=== PATIENT | female | born 2000 | race Caucasian/White ===

== ENCOUNTER 2020-10-14 16:36 | Emergency (ER) | payer OTHER ==
[2020-10-14 17:43] LABS: BASOPHIL 0.7 % (0-2); EOSINOPHIL 0.7 % (0-5); HCT 41.8 % (37.0-47.0); HGB 14.3 g/dl (12.5-16.0); LYMPHOCYTE 38.3 % (15-48); MCH 30.1 pg (25.0-31.0); MCHC 34.2 g/dL (32.0-36.0); MONOCYTE 5.4 % (0-12); MPV 9.5 fL (6.0-9.5); NEUTROPHIL 54.4 % (41-80); NRBC 0; PLT 241 K/uL (150-400); RBC 4.75 M/uL (4.20-5.40); RDW 12.7 % (11.5-14.0); WBC 5.7 K/uL (4.0-10.5)
[2020-10-14 17:50] LABS: BILIRUBIN NEGATIVE (NEGATIVE); CLARITY CLEAR (CLEAR); COLOR YELLOW (YELLOW); GLUCOSE (U) NORMAL (NORMAL); PROTEIN NEGATIVE (NEGATIVE); SPECIFIC GRAVITY 1.025 (1.001-1.030); pH 5.5 (5.0-9.0)
[2020-10-14 17:51] LABS: BLOOD 2+ Ery/uL (NEGATIVE); LEUKOCYTES NEGATIVE Leu/uL (NEGATIVE); NITRITE NEGATIVE (NEGATIVE); UROBILINOGEN 0.2 mg/dL (0.2-1.0)
[2020-10-14 17:53] LABS: SQUAMOUS EPITHELIAL CELLS RARE
[2020-10-14 18:00] LABS: ALBUMIN 3.3 g/dL (3.4-5.0); BILIRUBIN - TOTAL 0.4 mg/dL (0.2-1.0); BUN/CREAT RATIO (CALC) 9.9 RATIO; CREATININE 0.81 mg/dL (0.51-0.95); GLOBULIN (CALCULATION) 3.4 g/dL; POTASSIUM 4.3 mmol/L (3.5-5.1); TOTAL PROTEIN 6.7 g/dL (6.4-8.2)
== END 2020-10-14 20:15 | disposition home or self-care (01) ==
LOC: FER 16:36
PROVIDERS: Nurse Practitioner Family
DX: B34.9 Viral infection, unspecified (principal); R55 Syncope and collapse; Z88.0 Allergy status to penicillin; Z20.822 Contact with and (suspected) exposure to COVID-19
CPT/HCPCS: 36415; 71045; 80053; 81001; 85025; J7030; U0002

== ENCOUNTER 2020-10-16 17:47 | Emergency (ER) | payer OTHER ==
[2020-10-16 19:41] LABS: BILIRUBIN NEGATIVE (NEGATIVE); BLOOD 2+ Ery/uL (NEGATIVE); CLARITY CLEAR (CLEAR); COLOR YELLOW (YELLOW); GLUCOSE (U) NORMAL (NORMAL); LEUKOCYTES NEGATIVE Leu/uL (NEGATIVE); NITRITE NEGATIVE (NEGATIVE); PROTEIN NEGATIVE (NEGATIVE); UROBILINOGEN 0.2 mg/dL (0.2-1.0); pH 5.5 (5.0-9.0)
[2020-10-16 19:42] LABS: BASOPHIL 0.3 % (0-2); HCT 40.8 % (37.0-47.0); HGB 13.9 g/dl (12.5-16.0); LYMPHOCYTE 34.2 % (15-48); MCH 29.8 pg (25.0-31.0); MCHC 34.1 g/dL (32.0-36.0); MCV 87.4 fL (78.0-100.0); MONOCYTE 4.6 % (0-12); MPV 9.5 fL (6.0-9.5); NEUTROPHIL 59.6 % (41-80); NRBC 0; PLT 221 K/uL (150-400); RBC 4.67 M/uL (4.20-5.40); RDW 12.7 % (11.5-14.0); WBC 5.9 K/uL (4.0-10.5)
[2020-10-16 19:49] LABS: BACTERIA TRACE
[2020-10-16 20:14] LABS: ALBUMIN 2.8 g/dL (3.4-5.0); BILIRUBIN - TOTAL 0.2 mg/dL (0.2-1.0); BUN/CREAT RATIO (CALC) 5.1 RATIO; CREATININE 0.79 mg/dL (0.51-0.95); GLOBULIN (CALCULATION) 3.2 g/dL
== END 2020-10-16 21:17 | disposition home or self-care (01) ==
LOC: FER 17:47
PROVIDERS: Emergency Medicine
DX: R42 Dizziness and giddiness (principal); R63.4 Abnormal weight loss; J45.909 Unspecified asthma, uncomplicated; F17.290 Nicotine dependence, other tobacco product, uncomplicated; Z88.0 Allergy status to penicillin
CPT/HCPCS: 36415; 80053; 81001; 84443; 85025; 93005; J7030

== ENCOUNTER 2021-02-26 20:56 | Emergency (ER) | payer OTHER | END 2021-02-26 23:15 | disposition left against medical advice (07) | LOC: FER 20:56 | DX: R42 Dizziness and giddiness (principal); Z88.0 Allergy status to penicillin; Z87.891 Personal history of nicotine dependence; Z53.8 Procedure and treatment not carried out for other reasons | CPT/HCPCS: 93005 ==

== ENCOUNTER 2021-07-20 10:44 | Emergency (ER) | payer OTHER ==
[2021-07-20 12:44] LABS: BASOPHIL 0.6 % (0-2); HCT 44.2 % (37.0-47.0); LYMPHOCYTE 36.5 % (15-48); MCH 30.1 pg (25.0-31.0); MCHC 33.9 g/dL (32.0-36.0); MCV 88.6 fL (78.0-100.0); MONOCYTE 6.3 % (0-12); MPV 9.3 fL (6.0-9.5); NRBC 0; PLT 229 K/uL (150-400); RBC 4.99 M/uL (4.20-5.40); RDW 12.6 % (11.5-14.0); WBC 6.7 K/uL (4.0-10.5)
[2021-07-20 12:48] LABS: BILIRUBIN NEGATIVE (NEGATIVE); BLOOD NEGATIVE Ery/uL (NEGATIVE); CLARITY CLEAR (CLEAR); COLOR YELLOW (YELLOW); GLUCOSE (U) NORMAL (NORMAL); LEUKOCYTES NEGATIVE Leu/uL (NEGATIVE); NITRITE NEGATIVE (NEGATIVE); PROTEIN NEGATIVE (NEGATIVE); UROBILINOGEN 0.2 mg/dL (0.2-1.0); pH 5.5 (5.0-9.0)
[2021-07-20 13:14] LABS: ALBUMIN 2.9 g/dL (3.4-5.0); BILIRUBIN - TOTAL 0.3 mg/dL (0.2-1.0); BUN/CREAT RATIO (CALC) 8.5 RATIO; CREATININE 0.71 mg/dL (0.51-0.95); GLOBULIN (CALCULATION) 3.3 g/dL; POTASSIUM 3.8 mmol/L (3.5-5.1); TOTAL PROTEIN 6.2 g/dL (6.4-8.2)
== END 2021-07-20 15:42 | disposition home or self-care (01) ==
LOC: FER 10:44
PROVIDERS: Nurse Practitioner Family
DX: R10.13 Epigastric pain (principal); R11.2 Nausea with vomiting, unspecified; D18.03 Hemangioma of intra-abdominal structures; Z88.0 Allergy status to penicillin; Z87.891 Personal history of nicotine dependence
CPT/HCPCS: 36415; 80053; 81003; 85025; 85379; J7030